=== PATIENT | female | born 1995 | race African-American/Black ===

== ENCOUNTER 2023-11-16 17:59 | Emergency (ER) | payer MEDICAID ==
[~2023-11-16] VITALS: Ht 157.5 cm; Wt 87.0 kg
[2023-11-16 18:05] VITALS: PULSE 82
[2023-11-16 18:07] VITALS: BP 115/87; RESP 12; TEMP 98.3; O2SAT 99
== END 2023-11-16 21:06 | disposition left against medical advice (07) ==
LOC: ER 17:59
DX: R68.89 Other general symptoms and signs (principal); Z53.21 Procedure and treatment not carried out due to patient leaving prior to being seen by health care provider